=== PATIENT | male | born 1950 | race Caucasian/White ===

== ENCOUNTER 2020-06-25 15:39 | Emergency (ER) | payer MEDICARE, OTHER ==
[2020-06-25 18:46] LABS: RED BLOOD COUNT 5.02 M/UL (4.20-5.50)
== END 2020-06-25 21:25 | disposition home or self-care (01) ==
LOC: ER1 15:39
PROVIDERS: Physician Assistant Medical
DX: I13.0 Hypertensive heart and chronic kidney disease with heart failure and stage 1 through stage 4 chronic kidney disease, or unspecified chronic kidney disease (principal); E11.22 Type 2 diabetes mellitus with diabetic chronic kidney disease; N18.9 Chronic kidney disease, unspecified; I50.9 Heart failure, unspecified; J44.9 Chronic obstructive pulmonary disease, unspecified; F17.210 Nicotine dependence, cigarettes, uncomplicated; Z79.01 Long term (current) use of anticoagulants; Z79.82 Long term (current) use of aspirin
CPT/HCPCS: 70486; 71045; 80053; 82550; 82553; 83874; 83880; 84484; 85025; 93005; 99285

== ENCOUNTER 2020-12-08 17:16 | Emergency (ER) | payer MEDICARE, OTHER ==
[2020-12-08 18:11] LABS: HEMOGLOBIN 15.2 gm/dl (14.0-17.5); WHITE BLOOD COUNT 8.3 K/UL (4.5-11.0)
[2020-12-08 18:41] LABS: BUN/CREATININE RATIO 11 (0-10)
[2020-12-08] MEDS ORDERED: CEFUROXIME500 MG PO (21:29)
[2020-12-08] MEDS ORDERED: LASIX 40 MG TAB40 MG PO (21:29)
== END 2020-12-08 21:52 | disposition home or self-care (01) ==
LOC: ER1 17:16
PROVIDERS: Emergency Medicine
DX: I48.20 Chronic atrial fibrillation, unspecified (principal); I13.0 Hypertensive heart and chronic kidney disease with heart failure and stage 1 through stage 4 chronic kidney disease, or unspecified chronic kidney disease; I50.9 Heart failure, unspecified; N18.9 Chronic kidney disease, unspecified; J44.9 Chronic obstructive pulmonary disease, unspecified; F17.200 Nicotine dependence, unspecified, uncomplicated; E11.22 Type 2 diabetes mellitus with diabetic chronic kidney disease; N39.0 Urinary tract infection, site not specified
CPT/HCPCS: 70450; 71045; 80053; 81001; 82550; 82553; 83874; 83880; 84439; 84443; 84484; 85025; 85379; 87077; 87086; 87186; 93005; 96374; 99285

== ENCOUNTER → 2021-02-25 | Outpatient (CLI) | payer MEDICARE, OTHER ==
[~2021-02-25] MED LIST: ALDACTONE 25MG25 MG PO; AMLODIPINE BESY10 MG PO; ATORVASTATIN CA40 MG PO; BACLOFEN10 MG PO; CARVEDILOL25 MG PO; CEFUROXIME500 MG PO; CLONIDINE HCL0.2 MG PO; ELIQUIS5 MG PO; FLOMAX 0.4 MG0.4 MG PO; GLIPIZIDE XL5 MG PO; HYDRALAZINE HCL50 MG PO; JANUVIA 50 MG T50 MG PO; LASIX 40 MG TAB40 MG PO; MIRTAZAPINE15 MG PO; MONTELUKAST SOD10 MG PO; TRESIBA FL100 UNIT/1 SQ; VITAMIN D21250 MCG PO
== END ==
LOC: HEART 5 09:11
DX: R06.02 Shortness of breath (principal); Z79.899 Other long term (current) drug therapy
CPT/HCPCS: 94060; 94729

== ENCOUNTER → 2021-02-25 | Outpatient (CLI) | payer MEDICARE, OTHER ==
[2021-02-25 10:56] LABS: HEMOGLOBIN 13.5 gm/dl (14.0-17.5); RED BLOOD COUNT 4.49 M/UL (4.20-5.50); WHITE BLOOD COUNT 8.3 K/UL (4.5-11.0)
== END ==
LOC: LAB 09:57
PROVIDERS: Internal Medicine Cardiovascular Disease
DX: I48.92 Unspecified atrial flutter (principal); I25.10 Atherosclerotic heart disease of native coronary artery without angina pectoris; I10 Essential (primary) hypertension; R06.02 Shortness of breath
CPT/HCPCS: 36415; 71046; 80048; 80076; 84439; 84443; 84481; 85025; 94060; 94729; U0003

== ENCOUNTER 2021-03-01 09:18 | Outpatient (CLI) | payer MEDICARE, OTHER ==
[~2021-03-01] VITALS: Ht 188 cm; Wt 106.6 kg
[~2021-03-01 09:18] MED LIST changes: -ALDACTONE 25MG25 MG PO; -AMLODIPINE BESY10 MG PO; -ATORVASTATIN CA40 MG PO; -BACLOFEN10 MG PO; -CARVEDILOL25 MG PO; -CLONIDINE HCL0.2 MG PO; -ELIQUIS5 MG PO; -FLOMAX 0.4 MG0.4 MG PO; -GLIPIZIDE XL5 MG PO; -HYDRALAZINE HCL50 MG PO; -JANUVIA 50 MG T50 MG PO; -MIRTAZAPINE15 MG PO; -MONTELUKAST SOD10 MG PO; -TRESIBA FL100 UNIT/1 SQ; -VITAMIN D21250 MCG PO
[2021-03-01] MEDS ORDERED: CLONIDINE HCL0.2 MG PO (10:07)
[2021-03-01] MEDS ORDERED: AMLODIPINE BESY10 MG PO (10:08)
[2021-03-01] MEDS ORDERED: HYDRALAZINE HCL50 MG PO (10:08)
[2021-03-01] MEDS ORDERED: ELIQUIS5 MG PO (10:10)
[2021-03-01] MEDS ORDERED: CARVEDILOL25 MG PO (10:10)
[2021-03-01] MEDS ORDERED: ATORVASTATIN CA40 MG PO (10:11)
[2021-03-01] MEDS ORDERED: MONTELUKAST SOD10 MG PO (10:11)
[2021-03-01] MEDS ORDERED: JANUVIA 50 MG T50 MG PO (10:12)
[2021-03-01] MEDS ORDERED: BACLOFEN10 MG PO (10:12)
[2021-03-01] MEDS ORDERED: MIRTAZAPINE15 MG PO (10:14)
[2021-03-01] MEDS ORDERED: VITAMIN D21250 MCG PO (10:14)
[2021-03-01] MEDS ORDERED: GLIPIZIDE XL5 MG PO (10:14)
[2021-03-01] MEDS ORDERED: FLOMAX 0.4 MG0.4 MG PO (10:15)
[2021-03-01] MEDS ORDERED: ALDACTONE 25MG25 MG PO (10:16)
[2021-03-01] MEDS ORDERED: TRESIBA FL100 UNIT/1 SQ (10:16)
== END 2021-03-02 13:00 | disposition home or self-care (01) ==
LOC: CATH 09:18 → PROG CARE 18:26 → CATH 03-02 13:00
DX: I48.92 Unspecified atrial flutter (principal); I25.10 Atherosclerotic heart disease of native coronary artery without angina pectoris; E11.22 Type 2 diabetes mellitus with diabetic chronic kidney disease; I12.9 Hypertensive chronic kidney disease with stage 1 through stage 4 chronic kidney disease, or unspecified chronic kidney disease; N18.30 Chronic kidney disease, stage 3 unspecified; R06.02 Shortness of breath; I48.0 Paroxysmal atrial fibrillation; E78.5 Hyperlipidemia, unspecified; F17.200 Nicotine dependence, unspecified, uncomplicated; Z79.899 Other long term (current) drug therapy; Z79.4 Long term (current) use of insulin
CPT/HCPCS: 82962; 92960; 93005; 93609; 93620; 99152; 99153; C1730; C1733; C1766; J1200; J1644; J1742; J2250; J3010; J7040; J7050

== ENCOUNTER 2021-06-26 19:59 | Inpatient (IN) | payer MEDICARE, OTHER ==
[~2021-06-26] VITALS: Ht 188 cm; Wt 107.5 kg
[~2021-06-26 19:59] MED LIST changes: +ALDACTONE 25MG25 MG PO; +AMLODIPINE BESY10 MG PO; +ATORVASTATIN CA40 MG PO; +BACLOFEN10 MG PO; +CARVEDILOL25 MG PO; +CLONIDINE HCL0.2 MG PO; +ELIQUIS5 MG PO; +FLOMAX 0.4 MG0.4 MG PO
[2021-06-28] MEDS ORDERED: HYDRALAZINE HCL50 MG PO (10:08)
[2021-06-28] MEDS ORDERED: MONTELUKAST SOD10 MG PO (10:11)
[2021-06-28] MEDS ORDERED: JANUVIA 50 MG T50 MG PO (10:12)
[2021-06-28] MEDS ORDERED: GLIPIZIDE5 MG PO (10:14)
[2021-06-28] MEDS ORDERED: MIRTAZAPINE30 MG PO (10:14)
[2021-06-28] MEDS ORDERED: VITAMIN D21250 MCG PO (10:14)
[2021-06-28] MEDS ORDERED: TRESIBA FL100 UNIT/1 INJ (10:16)
[2021-06-28] MEDS ORDERED: AMIODARONE HCL200 MG PO (11:45)
[2021-06-28] MEDS ORDERED: PROAIR DIGIHAL90 MCG INH (11:45)
[2021-06-28] MEDS ORDERED: LINZESS145 MCG PO (11:46)
[2021-06-28] MEDS ORDERED: ANORO ELLIPTA1 EACH INH (11:46)
[2021-06-28] MEDS ORDERED: MECLIZINE HCL25 MG PO (11:47)
[2021-06-28 12:35] LABS: HEMOGLOBIN 11.5 gm/dl (14.0-17.5); RED BLOOD COUNT 4.06 M/UL (4.20-5.50); WHITE BLOOD COUNT 8.4 K/UL (4.5-11.0)
[2021-06-28 12:43] LABS: BUN/CREATININE RATIO 14 (0-10)
[2021-06-29 03:00] LABS: HEMOGLOBIN 12.1 gm/dl (14.0-17.5); RED BLOOD COUNT 4.27 M/UL (4.20-5.50); WHITE BLOOD COUNT 8.8 K/UL (4.5-11.0)
[2021-06-30 06:12] LABS: HEMOGLOBIN 11.7 gm/dl (14.0-17.5); RED BLOOD COUNT 4.16 M/UL (4.20-5.50)
[2021-06-30 06:20] LABS: WHITE BLOOD COUNT 6.3 K/UL (4.5-11.0)
[2021-06-30 11:13] LABS: CREATININE, URINE 115.3 mg/dL (Not Estab.)
[2021-07-01 07:11] LABS: COMPLEMENT C3, SERUM 138 mg/dL (82-167); COMPLEMENT C4, SERUM 27 mg/dL (12-38)
[2021-07-01 07:38] LABS: HEMOGLOBIN 11.2 gm/dl (14.0-17.5); RED BLOOD COUNT 4.01 M/UL (4.20-5.50); WHITE BLOOD COUNT 5.6 K/UL (4.5-11.0)
[2021-07-01 15:12] LABS: ANTI-DSDNA ANTIBODIES 1 IU/mL (0-9)
[2021-07-02 17:10] LABS: ANTIMYELOPEROXIDASE (MPO) ABS <9.0 U/mL (0.0-9.0); ANTIPROTEINASE 3 (PR-3) ABS <3.5 U/mL (0.0-3.5); ATYPICAL PANCA <1:20 titer (Neg:<1:20); CYTOPLASMIC (C-ANCA) <1:20 titer (Neg:<1:20); PERINUCLEAR (P-ANCA) <1:20 titer (Neg:<1:20)
[2021-07-03 07:52] LABS: RED BLOOD COUNT 3.86 M/UL (4.20-5.50); WHITE BLOOD COUNT 5.2 K/UL (4.5-11.0)
[2021-07-04 04:23] LABS: HEMOGLOBIN 11.4 gm/dl (14.0-17.5); RED BLOOD COUNT 4.01 M/UL (4.20-5.50); WHITE BLOOD COUNT 5.1 K/UL (4.5-11.0)
[2021-07-04] MEDS ORDERED: INVANZ 1 GM VIAL1 GM IV (11:37)
[2021-07-05 11:15] LABS: ANTIHISTONE ANTIBODIES 0.4 Units (0.0-0.9)
== END 2021-07-04 15:12 | disposition home or self-care (01) | DRG 682 ==
LOC: PROG CARE 06-28 10:15 → M/S 06-29 21:24
PROVIDERS: Internal Medicine Nephrology; Physician Assistant; ADMIT Internal Medicine
PROC: B24BZZZ Ultrasonography of Heart with Aorta (ICD-10-PCS; principal; 2021-06-29)
DX: N17.0 Acute kidney failure with tubular necrosis (principal); G92.8 Other toxic encephalopathy; Z16.12 Extended spectrum beta lactamase (ESBL) resistance; Z20.822 Contact with and (suspected) exposure to COVID-19; I48.19 Other persistent atrial fibrillation; N30.00 Acute cystitis without hematuria; I47.1 Supraventricular tachycardia; B96.20 Unspecified Escherichia coli [E. coli] as the cause of diseases classified elsewhere; D69.6 Thrombocytopenia, unspecified; J44.9 Chronic obstructive pulmonary disease, unspecified; E78.5 Hyperlipidemia, unspecified; E87.70 Fluid overload, unspecified; I25.10 Atherosclerotic heart disease of native coronary artery without angina pectoris; E66.01 Morbid (severe) obesity due to excess calories; I08.3 Combined rheumatic disorders of mitral, aortic and tricuspid valves; F17.210 Nicotine dependence, cigarettes, uncomplicated; E11.51 Type 2 diabetes mellitus with diabetic peripheral angiopathy without gangrene; N18.31 Chronic kidney disease, stage 3a; N40.1 Benign prostatic hyperplasia with lower urinary tract symptoms; R31.9 Hematuria, unspecified; I45.10 Unspecified right bundle-branch block; I12.9 Hypertensive chronic kidney disease with stage 1 through stage 4 chronic kidney disease, or unspecified chronic kidney disease; N18.32 Chronic kidney disease, stage 3b; E11.649 Type 2 diabetes mellitus with hypoglycemia without coma; E11.22 Type 2 diabetes mellitus with diabetic chronic kidney disease; Z79.01 Long term (current) use of anticoagulants; Z86.73 Personal history of transient ischemic attack (TIA), and cerebral infarction without residual deficits; Z79.82 Long term (current) use of aspirin; Z95.5 Presence of coronary angioplasty implant and graft; Z79.4 Long term (current) use of insulin; Z82.49 Family history of ischemic heart disease and other diseases of the circulatory system; Z82.0 Family history of epilepsy and other diseases of the nervous system; Z80.0 Family history of malignant neoplasm of digestive organs; Z68.30 Body mass index [BMI] 30.0-30.9, adult
CPT/HCPCS: ECHO; 36415; 70450; 71045; 80048; 80053; 80307; 81001; 82043; 82140; 82550; 82553; 82570; 82607; 82746; 82803; 82962; 83036; 83520; 83735; 83880; 84156; 84439; 84443; 84484; 85025; 85027; 86038; 86160; 86225; 86256; 87040; 87077; 87086; 87186; 93005; 93306; 93880; 97110-GP-CQ; 97116-GP-CQ; 97162; 97165; 97530; 97530-GP-CQ; J0696; J1335; J7030

== ENCOUNTER → 2021-07-29 | Outpatient (CLI) | payer MEDICARE, OTHER ==
[~2021-07-29] MED LIST changes: +AMIODARONE HCL200 MG PO; +ANORO ELLIPTA1 EACH INH; +GLIPIZIDE5 MG PO; +HYDRALAZINE HCL50 MG PO; +INVANZ 1 GM VIAL1 GM IV; +JANUVIA 50 MG T50 MG PO; +LINZESS145 MCG PO; +MECLIZINE HCL25 MG PO; +MIRTAZAPINE30 MG PO; +MONTELUKAST SOD10 MG PO; +PROAIR DIGIHAL90 MCG INH; +TRESIBA FL100 UNIT/1 INJ; +TRESIBA100 UNIT/1 SQ; +VITAMIN D21250 MCG PO
[2021-07-29 15:53] LABS: HEMOGLOBIN 10.7 gm/dl (14.0-17.5); RED BLOOD COUNT 3.94 M/UL (4.20-5.50)
== END ==
LOC: LAB 14:45
PROVIDERS: Internal Medicine Cardiovascular Disease
DX: I48.0 Paroxysmal atrial fibrillation (principal); I48.92 Unspecified atrial flutter; Z13.9 Encounter for screening, unspecified
CPT/HCPCS: 36415; 80048; 85025

== ENCOUNTER → 2021-08-02 | Outpatient (CLI) | payer MEDICARE, OTHER | LOC: CATH 07:09 | DX: I48.19 Other persistent atrial fibrillation (principal); I47.1 Supraventricular tachycardia; I48.92 Unspecified atrial flutter; I10 Essential (primary) hypertension; I25.10 Atherosclerotic heart disease of native coronary artery without angina pectoris; Z79.01 Long term (current) use of anticoagulants; Z79.4 Long term (current) use of insulin; Z79.899 Other long term (current) drug therapy; Z20.822 Contact with and (suspected) exposure to COVID-19 | CPT/HCPCS: 82962; 92960; 93005; J1200; J1742; J2250; J2310; J3010; J7040 ==

== ENCOUNTER 2021-10-11 17:52 | Inpatient (IN) | payer MEDICARE, OTHER ==
[~2021-10-11] VITALS: Ht 188 cm; Wt 116.7 kg
[~2021-10-11 17:52] MED LIST changes: +TRESIBA FLEXTOUCH SQ; -TRESIBA100 UNIT/1 SQ
[2021-10-11 19:08] LABS: RED BLOOD COUNT 3.92 M/UL (4.20-5.50); WHITE BLOOD COUNT 6.7 K/UL (4.5-11.0)
[2021-10-11 19:42] LABS: BUN/CREATININE RATIO 8 (0-10)
[2021-10-12] MEDS ORDERED: FUROSEMIDE40 MG PO (09:58)
[2021-10-12] MEDS ORDERED: BUMETANIDE1 MG PO (09:58)
[2021-10-12] MEDS ORDERED: FINASTERIDE5 MG PO (09:59)
[2021-10-12] MEDS ORDERED: LINZESS145 MCG PO (10:43)
[2021-10-12] MEDS ORDERED: BENAZEPRIL HCL10 MG PO (10:44)
[2021-10-12] MEDS ORDERED: LACTULOSE10 GM/15 M PO (10:45)
[2021-10-13 05:53] LABS: HEMOGLOBIN 10.2 gm/dl (14.0-17.5); RED BLOOD COUNT 3.69 M/UL (4.20-5.50); WHITE BLOOD COUNT 6.2 K/UL (4.5-11.0)
[2021-10-14 02:12] LABS: RED BLOOD COUNT 3.63 M/UL (4.20-5.50); WHITE BLOOD COUNT 6.3 K/UL (4.5-11.0)
[2021-10-15 06:23] LABS: HEMOGLOBIN 10.4 gm/dl (14.0-17.5); RED BLOOD COUNT 3.8 M/UL (4.20-5.50)
[2021-10-16 03:32] LABS: RED BLOOD COUNT 3.67 M/UL (4.20-5.50); WHITE BLOOD COUNT 6.8 K/UL (4.5-11.0)
[2021-10-17 03:05] LABS: HEMOGLOBIN 9.7 gm/dl (14.0-17.5); RED BLOOD COUNT 3.55 M/UL (4.20-5.50); WHITE BLOOD COUNT 6.5 K/UL (4.5-11.0)
[2021-10-17] MEDS ORDERED: ASPIRIN EC81 MG PO (11:05)
[2021-10-17] MEDS ORDERED: DOXYCYCLINE HY100 M2 PO (11:05)
--- NOTE | 2021-10-17 15:55 | NUR ---
CALLED TO GIVE REPORT TO [facility]. HAD TO LEAVE NUMBER FOR NURSE TO CALL BACK TO GET REPORT ON PATIENT. CALLED [phone] AT [id number].
== END 2021-10-17 15:33 | disposition home health service (06) | DRG 291 ==
LOC: ER1 17:52 → CDU 22:51 → M/S 10-12 10:49 → MED SURG 4 10-16 23:35
PROVIDERS: Emergency Medicine; Internal Medicine; ADMIT Internal Medicine
DX: I13.0 Hypertensive heart and chronic kidney disease with heart failure and stage 1 through stage 4 chronic kidney disease, or unspecified chronic kidney disease (principal); Z20.822 Contact with and (suspected) exposure to COVID-19; I50.23 Acute on chronic systolic (congestive) heart failure; J18.9 Pneumonia, unspecified organism; J96.21 Acute and chronic respiratory failure with hypoxia; N17.9 Acute kidney failure, unspecified; J44.0 Chronic obstructive pulmonary disease with (acute) lower respiratory infection; I48.20 Chronic atrial fibrillation, unspecified; N18.4 Chronic kidney disease, stage 4 (severe); I25.10 Atherosclerotic heart disease of native coronary artery without angina pectoris; N40.0 Benign prostatic hyperplasia without lower urinary tract symptoms; E87.6 Hypokalemia; E78.5 Hyperlipidemia, unspecified; E11.22 Type 2 diabetes mellitus with diabetic chronic kidney disease; F17.210 Nicotine dependence, cigarettes, uncomplicated; I45.81 Long QT syndrome; E66.9 Obesity, unspecified; Z79.01 Long term (current) use of anticoagulants; Z79.82 Long term (current) use of aspirin; Z86.73 Personal history of transient ischemic attack (TIA), and cerebral infarction without residual deficits; Z87.440 Personal history of urinary (tract) infections; Z82.49 Family history of ischemic heart disease and other diseases of the circulatory system; Z80.0 Family history of malignant neoplasm of digestive organs; Z95.5 Presence of coronary angioplasty implant and graft; Z82.0 Family history of epilepsy and other diseases of the nervous system; Z68.33 Body mass index [BMI] 33.0-33.9, adult
CPT/HCPCS: 36415; 36600; 71045; 80048; 80053; 81001; 82436; 82550; 82553; 82570; 82803; 82962; 83735; 83880; 84132; 84133; 84156; 84300; 84484; 85025; 86140; 93005; 94640; 94664; 94760; 96374; 96376; 99285; G0378; J0696; J1940; U0002